=== PATIENT | female | born 1985 | race Two or more races ===

== ENCOUNTER → 2017-03-20 01:21 | Emergency (ER) | payer OTHER ==
[~2017-03-20 01:21] MED LIST: NO MEDICATIONS; [UNRECOGNIZED DRUG - REMARK]
== END | disposition left against medical advice (07) ==
LOC: SED 01:21
DX: Z53.21 Procedure and treatment not carried out due to patient leaving prior to being seen by health care provider (principal)

== ENCOUNTER 2017-04-04 01:28 | Emergency (ER) | payer OTHER ==
--- NOTE | ~2017-04-04 | CT2 ---
[facility] A Service of [facility] RADIOLOGY TEXT RESULTS PATIENT: EVON MONTERO LOCATION: SED : 89 UNIT #: [id number] AGE: [address]: Gt Varghese MD SEX: F ORDER DR: [id number] [address] [address] [id number] MR#: [id number] Acc #: [id number] NAME: EVON MONTERO : 1985 SEX: F STUDY DATE/TIME: 04/04/2017 3:31 UNIT: SED ROOM: STUDY DESCRIPTION: CT Abd and Pelv W Cont Attending Physician: Gt Varghese M.D. Ordering Physician: Gt Varghese M.D. Primary Care Physician: Primary Care Physician No MEDICAL IMAGING REPORT This report is preliminary unless electronic signature is present. EXAM CT abdomen and pelvis with contrast HISTORY Abdominal pain starting tonight. [address] exam was performed with one or more of the following radiation dose reduction techniques: automatic exposure control, adjustment of mA and/or kV according to patient size, and iterative reconstruction. FINDINGS Axial images performed through the abdomen and pelvis following IV contrast. Multiplanar reconstructed images reviewed at a workstation. Study degraded due to motion artifact. ABDOMEN: Lung bases unremarkable. Liver, spleen, gallbladder, pancreas, kidneys and adrenal glands appear normal. No free air or free fluid. The GI tract to include the appendix unremarkable. PELVIS: The uterus mildly enlarged consistent with recent . Bladder is unremarkable. There is grade 1 spondylolisthesis L5 on S1 with bilateral L5 pars defects. IMPRESSION 1. Study is slightly motion-degraded. No acute intraabdominal intrapelvic pathology identified. The appendix is normal. 2. Mildly prominent uterus consistent with state. 3. Bilateral L5 pars defects with a grade 1 spondylolisthesis L5 on S1. Dictated by... [facility] A Service of [facility] RADIOLOGY TEXT RESULTS PATIENT: EVON MONTERO LOCATION: SED : 89 UNIT #: [id number] AGE: [address]: Gt Varghese MD SEX: F ORDER DR: Irving Vasquez M.D. THIS IS AN ELECTRONICALLY VERIFIED REPORT Irving Vasquez M.D. at 04/04/2017 10:05 PM KARIN/darby TD: 04/04/2017 05:05 JOB #: [id number] MEDICAL IMAGING REPORT Page 1 of 1
[2017-04-04 02:23] LABS: BASOPHIL# 0.1 X10e3 (0-0.3); BASOPHIL% 0.6 % (0-2.5); EOSINOPHIL# 0.2 X10e3 (0-0.7); EOSINOPHIL% 2.2 % (0.0-7.0); HEMATOCRIT 32.9 % (35.0-45.0); HEMOGLOBIN 10.6 gm/dL (12.0-16.0); LYMPHOCYTE# 2.1 X10e3 (1.0-3.5); LYMPHOCYTE% 22.7 % (17.0-45.0); MEAN CELL VOLUME 80.9 FL (83-96); MEAN CORPUSCULAR HEMOGLOBIN 26.2 PG (28-34); MEAN CORPUSCULAR HGB CONC 32.3 g/dL (30-36); MEAN PLATELET VOLUME 8.5 FL (6.5-11.5); MONOCYTE# 0.5 X10e3 (0-1.0); NEUTROPHIL# 6.3 X10e3 (1.5-7.1); NEUTROPHIL% 69.5 % (40-75); PLATELET COUNT 177 X10e3 (140-420); RED BLOOD COUNT 4.07 X10e (3.90-5.30); RED CELL DISTRIBUTION WIDTH 15.7 % (11.0-15.5); WHITE BLOOD COUNT 9.1 X10e3 (4.0-10.5)
[2017-04-04 02:24] LABS: DIFF IND NO
[2017-04-04 02:53] LABS: URINE SOURCE CLEAN CATCH
[2017-04-04 02:57] LABS: URINE APPEARANCE CLEAR; URINE BILIRUBIN NEG (NEG); URINE BLOOD 2+ (NEG); URINE COLOR YELLOW; URINE GLUCOSE NEG (NORM); URINE KETONE NEG (NEG); URINE LEUKOCYTE ESTERASE 1+ (NEG); URINE NITRATE NEG (NEG); URINE PROTEIN NEG (NEG); URINE SPECIFIC GRAVITY 1.015 (1.003-1.035); URINE UROBILINOGEN 0.2 MG/DL (NORM)
[2017-04-04 02:58] LABS: ALBUMIN SERUM 3.5 g/dL (3.5-5.0); ALKALINE PHOSPHATASE 79 U/L (32-92); ALT (SGPT) 63 U/L (10-40); AST (SGOT) 68 U/L (10-42); BILIRUBIN, DIRECT 0.1 mg/dL (0.0-0.2); BILIRUBIN,TOTAL <0.1 mg/dL (0.2-2.0); BLOOD UREA NITROGEN 14 mg/dL (9-23); CALCIUM SERUM 8.3 mg/dL (8.4-10.2); CARBON DIOXIDE 23 mmol/L (22-31); CHLORIDE 105 mmol/L (100-111); CREATININE SERUM 0.8 mg/dL (0.6-1.4); GLOM FILT RATE Estimated 99.7 mL/min (>60); GLUCOSE FASTING 138 mg/dL (70-110); LIPASE 49 U/L (22-51); POTASSIUM 3.2 mmol/L (3.5-5.1); PROTEIN TOTAL SERUM 6.8 g/dL (6.0-8.3); SODIUM 137 mmol/L (135-145)
[2017-04-04 02:59] LABS: CULTURE INDICATED? YES; MICRO INDICATED? YES; URINE BACTERIA 1+ (NEG); URINE GRANULAR CAST 0-2 /[HPF]; URINE HYALINE CAST 0-2 /[HPF]; URINE MUCUS PRESENT; URINE SQUAMOUS EPITHELIAL CELL FEW /[HPF]
== END 2017-04-04 04:37 | disposition home or self-care (01) ==
LOC: SED 01:28
PROVIDERS: Emergency Medicine
DX: O86.22 Infection of bladder following delivery (principal); O99.63 Diseases of the digestive system complicating the puerperium; K59.00 Constipation, unspecified
CPT/HCPCS: 36415; 74177; 80048; 80076; 81003; 83690; 84703; 85025; 87086; 96360; 99284; Q9967